=== PATIENT | male | born 1955 | race Caucasian/White ===

== ENCOUNTER → 2017-01-27 | Outpatient (CLI) | payer OTHER ==
[~2017-01-27] VITALS: Ht 190.5 cm; Wt 104.0 kg
[~2017-01-27] MED LIST: ALEVE220 MG PO; CIALIS5 MG PO; GRALISE600 MG PO; LYRICA300 MG PO; NEURONTIN 300M300 M2 PO; NUCYNTA50 MG PO; TRAMADOL 50 MG50 MG PO
--- NOTE | ~2017-01-27 | HPC ---
[facility] [address] [place] [address] PAIN MANAGEMENT CONSULTATION Name: MARYANN LOVE Room #: REG [facility].#: [id number] Admission: 01/27/17 Attend Phys: Mike Brush DO Discharge: Date of : 51 Report #: [id number] THIS REPORT FOR: //name// CC: Christophe Brush DATE OF SERVICE: 01/27/2017 REFERRING PHYSICIAN: Nain Mccloud M.D. CHIEF COMPLAINT: Bilateral lower extremity pain with paresthesias. 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 The patient has now undergone permanent spinal cord stimulator implantation with about 50% improvement in overall pain with this device and this in conjunction with Lyrica and Nucynta is a very effective treatment option for the patient. At worst, his pain is at a level of 3/10, which is a significant improvement. He returns today in followup visit requesting refills of his medications and discussed the possibility of having adjustments made in his spinal cord stimulator pattern of capture for pain. ALLERGIES: No known drug allergies. CURRENT MEDICATIONS: Naproxen 220 mg 3 times a day, pregabalin 300 mg twice a day and tapentadol 50 mg every 8 hours p.r.n. for pain. SOCIAL HISTORY: The patient denies tobacco, IV or illicit drug use. Admits to approximately 1 alcoholic beverage per week. He is employed, is working, not receiving workmen's compensation, unaccompanied today. IMAGING DATA: No new imaging available. PHYSICAL EXAMINATION: VITAL SIGNS: Blood pressure 148/89, pulse 66 and respiratory rate 16 and unlabored. The patient is 95% on room air, height 6 feet 3 inches tall, weight 229 pounds and BMI calculated at 28.7. GENERAL: Well-developed, well-nourished, well-hydrated 61-year-old male appearing his stated age. Pain is rated at 3/10 age. HEENT: Normocephalic and atraumatic. Pupils equal, round and reactive to light. EXTREMITIES: Show no clubbing, no cyanosis and no edema. MUSCULOSKELETAL: Seated straight leg raising negative. Supine straight leg raising negative. Naveen's test negative, intact to light touch from L1 through [facility] [address] [place] [address] PAIN MANAGEMENT CONSULTATION Name: KATEMARYANN Caleb Room #: REG [facility]#: [id number] Admission: 01/27/17 Attend Phys: Mike Brush DO Discharge: Date of : 51 Report #: [id number] S2 dermatomes. There are no temperature changes in the feet bilaterally. ASSESSMENT: 1. Idiopathic peripheral neuropathy. 2. Chronic intractable pain. PLAN: 1. The patient returns today in followup visit where we have discussed at length the efficacy of the spinal cord stimulator. He is reporting about 50% improvement in overall pain with this device. I recommend at this time, we reimage the lead positioning, determine if reprogramming changes need to be made. I have discussed this with the patient and have received authorization to transfer an image from our clinic to the [facility] device environmental marketing representative so that adjustments can be made in the programming and hopefully provide better analgesic benefit. We are hopeful to be able to return the patient to the level of improvement he noted with the trial implant of about 75%. They will coordinate with the patient time to adjust programming if necessary. 2. The patient was provided refill prescription of Lyrica 300 mg dose 1 tab p.o. b.i.d. I have given the patient #60 tablets, 5 refills, 6 months' worth of medication. 3. The patient was provided a prescription of Nucynta 50 mg dose 1 tab p.o. t.i.d., #90, releases of today, 4 weeks from today, 8 weeks from today, 3 months' worth of medication. 4. We will see the patient back in followup visit 3 months from today for medication management from a Nucynta standpoint 6 months for Lyrica and any earlier time if adjustments need to be made in the patient's spinal cord stimulator programming. By: [id number] Mike Brush DO /nt
[2017-01-27 08:24] VITALS: BP 148/89
== END ==
LOC: PAIN 07:04
DX: G90.09 Other idiopathic peripheral autonomic neuropathy (principal); G89.4 Chronic pain syndrome

== ENCOUNTER → 2019-01-11 | Outpatient (CLI) | payer OTHER ==
[~2019-01-11] VITALS: Ht 188 cm; Wt 101.3 kg
[~2019-01-11] MED LIST changes: +CELEBREX 200 M200 M1 PO
[2019-01-11 08:11] VITALS: BP 134/91
--- NOTE | 2019-01-11 08:25 | NUR ---
Pain Clinic Assessment: 1. History of Osteoarthritis: Not Applicable History of Rheumatoid Arthritis: Not Applicable 2. Height: 6 ft. 2 in. 188.0 cm. Weight: 223.4 lb. oz. 101.334 kg. Patient's BMI: 28.7 3. Vital Signs: BP: 134/91 Pulse: 58 Resp: 14 Temp: 02 Sat: 97 ECG Mon: 4. Pain Intensity: 4-DAILY AVG 5. Fall Risk: Dizziness: N Needs help standing or walking: N Fallen in the last 3 months: N Fall risk comments: 6. Patient on Blood Thinner: None 7. History of Hypertension: N 8. Opioid Therapy greater than 6 weeks: Opiate Contract Signed: 9. Risk Assessment Tool Provided: 10. Functional Assessment Tool: 11. Recreational Drug Use: Never Drug Type: Tobacco Use: Never Smoker Tobacco Type: Amount or Packs/day: How Many Years: Alcohol Use: Yes Frequency: Monthly Quant: 1-2 A MONTH
--- NOTE | 2019-01-17 15:47 | HPC ---
[facility] [address] [place] [address] PAIN MANAGEMENT CONSULTATION Name: KATEMARYANN Caleb Room #: REG [facility].#: [id number] Admission: 01/11/19 Attend Phys: Mike Brush DO Discharge: Date of : 51 Report #: [id number] THIS REPORT FOR: //name// CC: Christophe Brush DATE OF SERVICE: 01/11/2019 CHIEF COMPLAINT: Bilateral lower extremity pain with paresthesias. 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 The patient has successfully completed and underwent a spinal cord stimulator implantation, which is providing good benefit this in conjunction with the use of Nucynta on an as needed basis and tends to improve overall pain. He feels the combination provide up to 80% improvement in overall symptoms. He has been able to return to the majority of activities of his daily living without significant pain interference. He returns today also requesting a possible prescription for compounded medication, he can apply directly to his bilateral feet where his paresthesias remain somewhat of a nuisance, but not a level of discomfort that is debilitating. He has been advised that this cream has worked for friends of his in the past and he wishes to trial this today. He returns for refill of Nucynta and to discuss the possibility of being provided a prescription of the compounded medication. He denies any changes in medical history since our last visit. He has been doing very well overall. He has been able to go about his all work activities without interference. ALLERGIES: No known drug allergies. CURRENT MEDICATIONS: Celecoxib 200 mg twice a day, Nucynta 50 mg one tab p.o. q. 8 hours p.r.n. for pain, Lyrica 300 mg b.i.d., naproxen 220 mg t.i.d. p.r.n. SOCIAL HISTORY: The patient denies tobacco, IV or illicit drug use. Admits to approximately 1 alcohol beverage per week. He is employed. He is working, not receiving workmen's compensation, unaccompanied today. IMAGING: There is no new imaging available. PHYSICAL EXAMINATION: VITAL SIGNS: Blood pressure 134/91, pulse is 58, respiratory rate 14 and unlabored. The patient is 97% on room air, height 6 feet 2 inches tall, weight 223.4 pounds, BMI calculated 28.7. GENERAL: Well-developed, well-nourished, well-hydrated 60-[place] [address] PAIN MANAGEMENT CONSULTATION Name: MARYANN LOVE Room #: REG [facility].#: [id number] Admission: 01/11/19 Attend Phys: Mike Brush DO Discharge: Date of : 51 Report #: [id number] appears his stated age. He is placing pain today at around 4/10. HEENT: Normocephalic, atraumatic. Pupils equal, round, reactive to light. Extraocular muscles are intact. NEUROLOGIC: Speech is fluent. The patient deemed an excellent historian. EXTREMITIES: Show no clubbing, no cyanosis, no edema. MUSCULOSKELETAL: The patient has tactile sensation changes in the distal portion of the legs in a stocking-like distribution nondermatomal. There is decrease in tactile sensation noted as well as proprioception. Seated straight leg raising negative. Supine straight leg raising negative. Ivett's test negative. Modified Gaenslen's positive for some axial low back pain. ASSESSMENT: 1. Idiopathic neuropathy of the lower extremities. 2. Bilateral peripheral neuropathy. 3. Chronic intractable pain. PLAN: 1. The patient has returned today in followup visit indicating that the combination of Nucynta on an as needed basis when his pain is intense along with use of the spinal cord stimulator provides good benefit reducing his pain by greater than 70%. Overall, the patient states he has been doing well. He is participating in daily activities. Also, he is quite active from a physical standpoint. He swims, bikes and does long walks despite his ongoing paresthesias. The patient feels the combination of medications with the spinal cord stimulator is working beneficially. He has requested a trial of compound of medication, one of his medical colleagues has been trialing for his neuropathy and stating he is receiving good benefit. He brings information about that a compound agent today with him and wishes a prescription. I reviewed the information and it does appear to be a safe medication, compounded by [facility]. These compounded medications have been used in the past with efficacy. The compounded medication itself has baclofen, gabapentin, ketamine, nifedipine, imipramine and lidocaine, all of which could be beneficial for peripheral neuropathic symptoms. He requests a prescription of this medication as well as refills of his other therapies. 2. The patient was provided prescription of Nucynta 50 mg dose 1 tab p.o. t.i.d. I have given the patient #90 tablets, releasing today, 4 weeks from today and 8 weeks from today, essentially 3 months' worth of medication if he is using on a t.i.d. basis. Last prescriptions were provided nearly 2 years ago, so he is using the medication appropriately. We have given him the prescriptions today to take as necessary. He is to safeguard his medications as we have discussed in previous evaluations. We have taken the liberty of performing PDMP and there are no aberrant entries in that records concerning the patient might be receiving medications from multiple sources. 3. We reviewed the fact that opiate medications are being used to provide analgesia adequate to support activities of daily living, not attempting to achieve a specific pain score on the 0-10 Visual Analog Scale. The current [facility] [address] [place] [address] PAIN MANAGEMENT CONSULTATION Name: MARYANN LOVE Room #: REG [facility].#: [id number] Admission: 01/11/19 Attend Phys: Mike Brush DO Discharge: Date of : 51 Report #: [id number] opiate medications are providing sufficient analgesia to allow the patient to participate in activities of daily living. The patient is not exhibiting any aberrant behavior suggestive of drug diversion. The patient is not having any adverse reactions to medications. The patient is not suffering from daytime somnolence or mental acuity changes. The patient is managing opiate-induced constipation with appropriate cbla-mei-obszbux agents and dietary considerations. The patient was counseled on concern for caution with operating a motor vehicle while using opiate medications. A physical exam was performed and the patient's functional status was evaluated. All patients with back pain were advised against the bed rest greater than 4 days and were advised to return to normal activities. Pain score assessment was noted and the treatment plan was reviewed with the patient. All current medications, both prescribed and OTC were reviewed and reconciled on the electronic medical record. Tobacco screening was accomplished and smoking cessation was advised when indicated. BMI was noted and diet/exercise modification was recommended for all patients following outside normal parameters. I reviewed with the patient today their responsibilities to safeguard prescription medications, reviewed their responsibility to utilize medications only as prescribed by the physician. They are to seek and receive pain medications only from 1 physician group ( [facility]). They are to use 1 pharmacy and keep the clinic informed if they change pharmacies. Their responsibilities include making followup visits in a timely fashion and to avoid abrupt discontinuation of medication usage. Their responsibilities further include bringing their medications (bottles from the pharmacy with residual pills) to the visit for possible confirmation of pill counts and the patient understands it is their responsibility to submit to random drug screens to ensure both that the medications prescribed are present, and that no other controlled substances are present. All prescriptions provided today were generated electronically. 4. The patient was provided a prescription of the compounded cream. We have requested a 240-gram total to provide the patient, so he can use this up to 4 times a day as necessary. Prescription for contains baclofen 2%, gabapentin 6%, ketamine 10%, imipramine 5%, nifedipine 2% and lidocaine 2%. He will apply this up to 4 times a day as necessary to topical areas and to watch for any side effects such as topical allergic reactions or any type of potential systemic side effects that may be related to the medication. If he notes any side effects, discontinue immediately. 5. We will see the patient back in followup visit on an as needed basis. We [address] [address] PAIN MANAGEMENT CONSULTATION Name: MARYANN LOVE Room #: REG [facility]#: [id number] Admission: 01/11/19 Attend Phys: Mike Brush DO Discharge: Date of : 51 Report #: [id number] are pleased to see he is doing well. We are hopeful he continues to see good benefit. <ELECTRONICALLY SIGNED> By: Mike Brush DO 01/17/19 [id number] Mike Brush DO /nt
== END ==
LOC: PAIN 06:45
DX: G62.9 Polyneuropathy, unspecified (principal); G89.4 Chronic pain syndrome; G60.9 Hereditary and idiopathic neuropathy, unspecified; Z79.899 Other long term (current) drug therapy